=== PATIENT | female | born 1945 | race African-American/Black ===

== ENCOUNTER 2016-07-14 03:02 | Emergency (ER) | payer OTHER ==
[~2016-07-14] VITALS: Ht 152.4 cm; Wt 94.4 kg
[2016-07-14] MEDS ORDERED: ACETAMINOPHEN 500 MG TAB PO STA (03:37)
--- NOTE | 2016-07-14 03:45 | EMERGENCY ROOM VISIT NOTE ---
History Report prepared by Jennifer: Genesis Wall Under the Supervision of: Dr. Awa Hay D.O. First contact with patient: 03:15 Chief Complaint: FEVER Stated Complaint: FEVER Nursing Triage Summary: Fever with cough for past two days. Hx of CHF. History of Present Illness The patient is a 70 year old female who presents to the Emergency Room with complaints of a persistent fever that began today. Per records, the patient was discharged from [facility] after an episode of CHF. Records indicate that the patient as discharged to [facility] for rehabilitation on July 02. Per records, the patient has had a fever of up to 102.7 degrees Fahrenheit, but did not receive any Tylenol or Motrin for her symptoms. The patient states that she has been feeling "lousy" and notes a persistent cough. She denies any chest pain, shortness of breath, or abdominal pain. Source of History: patient, transfer records Onset: today Position: other (global) Symptom Intensity: 102 degrees Fahrenheit Quality: other (fever) Timing: other (persistent) Associated Symptoms: + cough, No SOB, No abdominal pain, No chest pain Review of Systems See HPI for pertinent positives & negatives. A total of 10 systems reviewed and were otherwise negative. Past Medical & Surgical Medical Problems: (1) GERD (gastroesophageal reflux disease) (2) Hyperlipidemia (3) Hypertension (4) Type 2 diabetes mellitus Family History No pertinent family history was stated. Social History Smoking Status: Never Smoker Smokeless Tobacco Use: No Alcohol Use: none Current/Historical Medications Scheduled Aspirin (Aspirin Ec), 81 MG PO QAM Carvedilol (Coreg), 6.25 MG PO BID Docusate Sodium (Docusate Sodium), MG PO BID Enoxaparin Sodium (Lovenox), 30 MG SQ DAILY @ 7PM Famotidine (Pepcid), 20 MG PO DAILY Furosemide (Lasix), 20 MG PO DAILY Glipizide (Glipizide Xl), 7.5 MG PO QAM Glipizide (Glipizide Xl), 5 MG PO QPM Insulin Aspart (Novolog), SQ ACHS Lidocaine (Lidocaine), 1 PATCH TOP DAILY Losartan Potassium (Cozaar), 50 MG PO QAM Magnesium Oxide (Mag-Ox), 400 MG PO TID Metformin Hcl (Glucophage), 500 MG PO BIDM Nystatin (Topical) (Nystop), 1 APPLN TOP BID Potassium Chloride Microencaps (Potassium Chloride Er), 1 TAB PO BIDM Simvastatin (Zocor), 20 MG PO QPM Scheduled PRN Acetaminophen (Tylenol), 650 MG PO Q4 PRN for Mild Pain Benzocaine-Menthol (Mouth-Thro (Cepacol Sore Throat), 1 ORIN PO Q4 PRN for cough/ sore throat Ipratropium-Albuterol (Duoneb), 1 TREATMENT INH Q4H PRN for SOB/Wheezing Polyethylene Glycol 3350 (Miralax), 17 GM PO Q24H PRN for Constipation Senna/Docusate Sod (Senokot S), 1 TAB PO Q24H PRN for Constipation Allergies Coded Allergies: Ketorolac (Verified Allergy, Unknown, UNKNOWN, 07/14/16) Tramadol (Verified Allergy, Unknown, UNKNOWN, 07/14/16) Physical Exam Vital Signs Date Time Temp Pulse Resp B/P Pulse Ox O2 Delivery O2 Flow Rate FiO2 07/14/16 08:03 92 18 109/72 92 07/14/16 05:10 37.8 100 20 130/106 95 Room Air 07/14/16 03:24 Room Air 07/14/16 03:19 113 07/14/16 03:14 91 Room Air 07/14/16 03:02 38.6 108 20 120/71 93 Room Air Physical Exam HEENT: Head - normocephalic and atraumatic Pupils are equal, round, and reactive to light. Extraocular eye muscles are intact, and sclera are anicteric. Nose - moist nasal mucosa without discharge. Mouth - moist buccal mucosa. Oropharynx is nonerythematous and there is no tonsillar exudate or edema noted. Neck: Supple; no JVD, nuchal rigidity, cervical lymphadenopathy. Heart: Tachycardic rate and regular rhythm. There is a normal S1 and S2 with no murmurs, clicks, or gallops appreciated. Lungs: Lung sounds were diminished at both lung bases. No wheezes, rales, or rhonchi. Abdomen: Soft, completely nontender, nondistended, with good bowel sounds. There are no palpable pulsatile masses or hepatosplenomegaly. There is no guarding, rigidity, or rebound noted. Extremities: No evidence of cyanosis, clubbing, or edema. There are easily palpable peripheral pulses. Skin: hot and dry with good turgor and no rashes. Medical Decision & Procedures ER Provider Diagnostic Interpretation: 1-view Chest x-ray: cardiac pacemaker in place haziness in left lung base no obvious consolidation Laboratory Results 07/14/16 03:42 Red Blood Count 3.45, Mean Corpuscular Volume 88.7, Mean Corpuscular Hemoglobin 29.9, Mean Corpuscular Hemoglobin Concent 33.7, Mean Platelet Volume 8.5, Neutrophils (%) (Auto) 45.9, Lymphocytes (%) (Auto) 29.4, Monocytes (%) (Auto) 21.7, Eosinophils (%) (Auto) 2.2, Basophils (%) (Auto) 0.5, Neutrophils # (Auto ) 3.55, Lymphocytes # (Auto) 2.27, Monocytes # (Auto) 1.68, Eosinophils # (Auto ) 0.17, Basophils # (Auto) 0.04 07/14/16 03:42 Test 07/14/16 03:42 07/14/16 03:55 07/14/16 04:00 07/14/16 04:05 White Blood Count 7.73 K/uL (4.8-10.8) Red Blood Count 3.45 M/uL (4.2-5.4) Hemoglobin 10.3 g/dL (12.0-16.0) Hematocrit 30.6 % (37-47) Mean Corpuscular Volume 88.7 fL (80-100) Mean Corpuscular Hemoglobin 29.9 pg (25-34) Mean Corpuscular Hemoglobin Concent 33.7 g/dl (32-36) Platelet Count 250 K/uL (130-400) Mean Platelet Volume 8.5 fL (7.4-10.4) Neutrophils (%) (Auto) 45.9 % Lymphocytes (%) (Auto) 29.4 % Monocytes (%) (Auto) 21.7 % Eosinophils (%) (Auto) 2.2 % Basophils (%) (Auto) 0.5 % Neutrophils # (Auto) 3.55 K/uL (1.4-6.5) Lymphocytes # (Auto) 2.27 K/uL (1.2-3.4) Monocytes # (Auto) 1.68 K/uL (0.11-0.59) Eosinophils # (Auto) 0.17 K/uL (0-0.5) Basophils # (Auto) 0.04 K/uL (0-0.2) RDW Standard Deviation 43.9 fL (36.4-46.3) RDW Coefficient of Variation 13.4 % (11.5-14.5) Immature Granulocyte % (Auto) 0.3 % Immature Granulocyte # (Auto) 0.02 K/uL (0.00-0.02) Anion Gap 10.0 mmol/L (3-11) Est Creatinine Clear Calc Drug Dose 34.1 ml/min Estimated GFR () 37.7 Estimated GFR (Non- 32.5 BUN/Creatinine Ratio 14.9 (10-20) Calcium Level 11.8 mg/dl (8.5-10.1) Total Bilirubin 0.3 mg/dl (0.2-1) Aspartate Amino Transf (AST/SGOT) 18 U/L (15-37) Alanine Aminotransferase (ALT/SGPT) 22 U/L (12-78) Alkaline Phosphatase 101 U/L (45-117) Total Protein 7.0 gm/dl (6.4-8.2) Albumin 3.0 gm/dl (3.4-5.0) Globulin 4.0 gm/dl (2.5-4.0) Albumin/Globulin Ratio 0.8 (0.9-2) Prothrombin Time 10.9 SECONDS (9.0-12.0) Prothromb Time International Ratio 1.0 (0.9-1.1) Activated Partial Thromboplast Time 25.9 SECONDS (21.0-31.0) Partial Thromboplastin Ratio 1.0 Bedside Lactic Acid Venous 0.96 mmol/L (0.90-1.70) Influenza Type A Antigen Neg for Influ A (NEG) Influenza Type B Antigen Neg for Influ B (NEG) Test 07/14/16 05:51 Urine Color YELLOW Urine Appearance CLEAR (CLEAR) Urine pH 5.5 (4.5-7.5) Urine Specific [place] 1.011 (1.000-1.030) Urine Protein NEG (NEG) Urine Glucose (UA) NEG (NEG) Urine Ketones NEG (NEG) Urine Occult Blood NEG (NEG) Urine Nitrite NEG (NEG) Urine Bilirubin NEG (NEG) Urine Urobilinogen NEG (NEG) Urine Leukocyte Esterase NEG (NEG) Laboratory results per my review. Medications Administered Medications (Trade) Dose Ordered Sig/Palmer Route Start Time Stop Time Status Last Admin Dose Admin Acetaminophen (Tylenol Tab) 1,000 mg NOW STAT PO 07/14/16 03:37 07/14/16 03:38 DC 07/14/16 04:02 1,000 MG Procedure The patient was treated with 1000 mg Tylenol Tab PO. ECG Indication: other (fever) Rate (beats per minute): 109 Rhythm: sinus tachycardia, other (paced rhythm) Findings: paced rhythm, no ectopy Comparison ECG Date: no prior available ED Course 0328: Past medical records reviewed. The patient was evaluated in room B9. A complete history and physical exam was performed. A twelve-lead EKG was obtained. Labs were drawn as above. A septic protocol was performed. 0331: I reviewed the patient's records from [facility]. 0337: Ordered Tylenol Tab 1000 mg PO. 0612: I reevaluated the patient and I had a long conversation with her daughter in law. She states that the cough has been persistent for the past two weeks, but states that the fever is new. We are awaiting her urinalysis. 0648: I discussed the patient's case with Dr. Alvarez from [facility]. He states that the patient has been being worked up for the lymphadenopathy in her chest while at [facility] to rule out sarcoid yet they did come here in our waiting for the CT altered her CTs have been read. He notes that the patient hat a PET scan on Wednesday which shows signs fo significant lymph nodes in her chest, liver, and bone that are concerning for metastatic disease. He notes that the plan is to discharge the patient from [facility] tomorrow to [facility] for a lung biopsy and further treatment of her hypercalcemia. 0652: I reevaluated the patient and she is resting. I discussed the treatment plan with the patient and the daughter in law and they verbalized complete understanding and agreement. The patient is ready go back to [facility] Medical Decision The patient is a 70 year old female who presents to the ED with a fever. Differential diagnosis includes sepsis, influenza, pneumonia, bronchitis, CHF. Labs: No leukocytosis, Hemoglobin is 10.3, lactic acid is 0.9, BUN 24, creatinine 1.6, LFTs are normal, urinalysis is negative, coagulation studies are normal, flu was negative. The patient presents here with a fever. We could not identify a source of while she was here. It was thought to be respiratory because the patient had a cough. O2 saturations were stable. I had a lengthy discussion with Dr. Alvarez. It seems that they plan to discharge the patient from [facility] tomorrow to go to [facility] for a lung biopsy. They will watch her closely there for any further sources of infection. Impression Primary Impression: Fever Scribe Attestation The scribe's documentation has been prepared under my direction and personally reviewed by me in its entirety. I confirm that the note above accurately reflects all work, treatment, procedures, and medical decision making performed by me. Departure Information Dispostion Home / Self-Care Forms HOME CARE DOCUMENTATION FORM, IMPORTANT VISIT INFORMATION Patient Instructions My [facility] Additional Instructions Watch her closely for further fevers and possible sources of a fever. Follow up at [facility] for Pet scan results and lung bioposy
[2016-07-14 03:54] VITALS: Ht 152.4 cm; Wt 94.4 kg
[2016-07-14 03:54] LABS: BASO % 0.5 %; BASO ABS # 0.04 K/uL (0-0.2); COMPLETE YES; EOS % 2.2 %; HEMATOCRIT 30.6 % (37-47); IG% 0.3 %; LYMPH % 29.4 %; LYMPH ABS # 2.27 K/uL (1.2-3.4); MEAN CELL VOLUME 88.7 fL (80-100); MEAN CORPUSCULAR HEMOGLOBIN 29.9 pg (25-34); MEAN CORPUSCULAR HGB CONC 33.7 g/dl (32-36); MEAN PLATELET VOLUME 8.5 fL (7.4-10.4); MONO % 21.7 %; NEUT % 45.9 %; PLATELET COUNT 250 K/uL (130-400); RED BLOOD COUNT 3.45 M/uL (4.2-5.4); WHITE BLOOD COUNT 7.73 K/uL (4.8-10.8)
[2016-07-14 04:12] LABS: BUN/CREATININE RATIO 14.9 (10-20); CALCIUM 11.8 mg/dl (8.5-10.1); CREATININE 1.6 mg/dl (0.60-1.20); POTASSIUM 4.2 mmol/L (3.5-5.1)
[2016-07-14 04:14] LABS: ALB/GLOB RATIO 0.8 (0.9-2)
[2016-07-14 04:20] LABS: PROTHROMBIN TIME (PATIENT) 10.9 SECONDS (9.0-12.0)
[2016-07-14] MEDS ORDERED: CARV6.252 PO (04:28)
[2016-07-14] MEDS ORDERED: ASPI81TA28 PO (04:28)
[2016-07-14] MEDS ORDERED: FRS/40 PO (04:29)
[2016-07-14] MEDS ORDERED: FAMO20TA11 PO (04:29)
[2016-07-14] MEDS ORDERED: GLIP-172 PO ×2 (04:31→04:38)
[2016-07-14] MEDS ORDERED: MAGN400T6 PO (04:33)
[2016-07-14] MEDS ORDERED: FURO-85 PO (04:33)
[2016-07-14] MEDS ORDERED: GLCSR5 PO (04:38)
[2016-07-14] MEDS ORDERED: SIMV20TA2 PO (04:38)
[2016-07-14] MEDS ORDERED: POTA10TA32 PO (04:39)
[2016-07-14] MEDS ORDERED: DOCU100C31 PO (04:42)
[2016-07-14] MEDS ORDERED: ENOX1INJ8 SQ (04:42)
[2016-07-14] MEDS ORDERED: NVLG SQ (04:47)
[2016-07-14 05:10] VITALS: TEMP 37.8
[2016-07-14] MEDS ORDERED: LDDP5 TOP (05:12)
[2016-07-14] MEDS ORDERED: LOSA50TA6 PO (05:14)
[2016-07-14] MEDS ORDERED: MAGNTAB4 PO (05:14)
[2016-07-14] MEDS ORDERED: GLC/500 PO (05:16)
[2016-07-14] MEDS ORDERED: NYST100010 TOP (05:19)
[2016-07-14] MEDS ORDERED: BENZ10LO2 PO (05:20)
[2016-07-14] MEDS ORDERED: SENN-65 PO (05:23)
[2016-07-14] MEDS ORDERED: POLY335019 PO (05:23)
[2016-07-14] MEDS ORDERED: ACET-1311 PO (05:24)
[2016-07-14] MEDS ORDERED: IPRASOL4 INH (05:24)
[2016-07-14 06:10] LABS: URINE APPEARANCE CLEAR (CLEAR); URINE BILIRUBIN NEG (NEG); URINE COLOR YELLOW; URINE NITRITE NEG (NEG); URINE PH 5.5 (4.5-7.5); URINE SPECIFIC GRAVITY 1.011 (1.000-1.030); UROBILINOGEN NEG (NEG)
[2016-07-14 06:16] LABS: MANUAL MICROSCOPIC REQUIRED? NO; REVIEW REQ? NO
--- NOTE | 2016-07-14 06:48 | DIAGNOSTIC IMAGING REPORT ---
CHEST ONE VIEW PORTABLE CLINICAL HISTORY: Sepsis COMPARISON STUDY: No previous studies for comparison. FINDINGS: The study is rotated. The heart is mildly enlarged. There is a left subclavian dual-chamber central venous pacemaker/defibrillator present. There is no lobar consolidation. Increased basal markings are likely atelectatic. There is equivocal mild pulmonary vascular congestion.[ IMPRESSION: Technically limited study. Equivocal mild pulmonary vascular congestion. Basilar atelectasis. No evidence of lobar consolidation Electronically signed by: Jeb Johns M.D. 07/14/2016 6:47 AM Dictated Date/Time: 07/14/2016 6:46 AM
[2016-07-14 08:03] VITALS: BP 109/72; PULSE 92; O2SAT 92
== END 2016-07-14 08:22 | disposition home or self-care (01) ==
LOC: EDBD 03:02 → C.EDB 03:05
DX: R50.9 Fever, unspecified (principal); K21.9 Gastro-esophageal reflux disease without esophagitis; E78.5 Hyperlipidemia, unspecified; I10 Essential (primary) hypertension; E11.9 Type 2 diabetes mellitus without complications; Z79.4 Long term (current) use of insulin

== ENCOUNTER → 2016-08-13 | Outpatient (CLI) | payer OTHER ==
[~2016-08-13] MED LIST: ACET-1311 PO; ASPI81TA28 PO; BENZ10LO2 PO; CARV6.252 PO; DOCU100C31 PO; ENOX1INJ8 SQ; FAMO20TA11 PO; FURO-85 PO; GLC/500 PO; GLCSR5 PO; GLIP-172 PO; IPRASOL4 INH; LDDP5 TOP; LOSA50TA6 PO; MAGN400T6 PO; NVLG SQ; NYST100010 TOP; POLY335019 PO; POTA10TA32 PO; SENN-65 PO; SIMV20TA2 PO
--- NOTE | 2016-08-13 11:55 | DIAGNOSTIC IMAGING REPORT ---
ULTRASOUND-GUIDED LEFT RETROMANDIBULAR LYMPH NODE FINE-NEEDLE ASPIRATION BIOPSY. CLINICAL HISTORY: Abnormal PET scan with multiple FDG avid lymph nodes COMPARISON STUDY: Outside PET/CT dated 07/10/2016 FINDINGS: The risks of the procedure were explained the patient and informed consent was obtained. A left-sided retromandibular lymph node was identified which corresponded to a FDG avid lymph node on the outside PET/CT scan. The patient was prepped in sterile fashion. The skin was anesthetized 1% lidocaine. Under ultrasound guidance, 3 passes into the lymph node in question were performed utilizing a 25-gauge needle. Initial pathologic review indicated material suspicious for a granulomatous process. Final pathology is pending at this time. IMPRESSION: 1. Successful ultrasound-guided fine-needle aspiration biopsy of a left retromandibular lymph node. Electronically signed by: Jeb Johns M.D. 08/13/2016 11:54 AM Dictated Date/Time: 08/13/2016 11:52 AM
[2016-08-13 13:18] LABS: BLOOD UREA NITROGEN 16 mg/dl (7-18); BUN/CREATININE RATIO 9.8 (10-20); CARBON DIOXIDE 30 mmol/L (21-32); CHLORIDE 100 mmol/L (98-107); GLUCOSE 154 mg/dl (70-99); MAGNESIUM 1.7 mg/dl (1.8-2.4); SODIUM 137 mmol/L (136-145)
[2016-08-13 13:21] LABS: CALCIUM 13.3 mg/dl (8.5-10.1)
== END | disposition home or self-care (01) ==
LOC: C.ULTR 10:35
PROVIDERS: ATTEND Internal Medicine Endocrinology, Diabetes & Metabolism
DX: E83.52 Hypercalcemia (principal); R63.4 Abnormal weight loss; R91.8 Other nonspecific abnormal finding of lung field; I50.9 Heart failure, unspecified; E83.42 Hypomagnesemia

== ENCOUNTER → 2016-08-18 | Outpatient (CLI) | payer OTHER ==
[2016-08-18 18:55] LABS: BLOOD UREA NITROGEN 19 mg/dl (7-18); BUN/CREATININE RATIO 7.5 (10-20); CARBON DIOXIDE 28 mmol/L (21-32); CHLORIDE 100 mmol/L (98-107); GLUCOSE 156 mg/dl (70-99); POTASSIUM 4.4 mmol/L (3.5-5.1); SODIUM 135 mmol/L (136-145)
== END | disposition home or self-care (01) ==
LOC: C.LABMFLN 10:56
PROVIDERS: ATTEND Internal Medicine Endocrinology, Diabetes & Metabolism
DX: E83.52 Hypercalcemia (principal)

== ENCOUNTER → 2016-09-03 | Outpatient (CLI) | payer OTHER ==
[2016-09-03 19:10] LABS: BLOOD UREA NITROGEN 27 mg/dl (7-18); BUN/CREATININE RATIO 15.1 (10-20); CALCIUM 10.5 mg/dl (8.5-10.1); CARBON DIOXIDE 34 mmol/L (21-32); CHLORIDE 100 mmol/L (98-107); GLUCOSE 316 mg/dl (70-99); SODIUM 139 mmol/L (136-145)
[2016-09-03 19:20] LABS: BETA-HYDROXYBUTYRATE 0.77 mg/dL (0.2-2.81)
== END | disposition home or self-care (01) ==
LOC: C.LABMFLN 10:55
PROVIDERS: ATTEND Internal Medicine
DX: D86.9 Sarcoidosis, unspecified (principal); E83.52 Hypercalcemia

== ENCOUNTER → 2016-09-16 | Outpatient (CLI) | payer OTHER ==
[2016-09-16 18:48] LABS: ALB/GLOB RATIO 0.8 (0.9-2); ALKALINE PHOSPHATASE 238 U/L (45-117); ALT/SGPT 44 U/L (12-78); AST/SGOT 17 U/L (15-37); BLOOD UREA NITROGEN 25 mg/dl (7-18); BUN/CREATININE RATIO 13.7 (10-20); CALCIUM 10.3 mg/dl (8.5-10.1); CARBON DIOXIDE 30 mmol/L (21-32); CHLORIDE 97 mmol/L (98-107); MAGNESIUM 1.7 mg/dl (1.8-2.4); POTASSIUM 4.7 mmol/L (3.5-5.1); SODIUM 132 mmol/L (136-145)
[2016-09-16 18:49] LABS: GLUCOSE 581 mg/dl (70-99)
[2016-09-16 18:59] LABS: BETA-HYDROXYBUTYRATE 1.09 mg/dL (0.2-2.81)
== END | disposition home or self-care (01) ==
LOC: C.LABMFLN 07:35
PROVIDERS: ATTEND Internal Medicine Endocrinology, Diabetes & Metabolism
DX: I10 Essential (primary) hypertension (principal); E83.52 Hypercalcemia; E83.42 Hypomagnesemia

== ENCOUNTER → 2016-10-01 | Outpatient (CLI) | payer OTHER ==
[2016-10-01 13:10] LABS: HEMATOCRIT 37.4 % (37-47)
[2016-10-01 13:36] LABS: BLOOD UREA NITROGEN 30 mg/dl (7-18); BUN/CREATININE RATIO 18.9 (10-20); CALCIUM 10.8 mg/dl (8.5-10.1); CARBON DIOXIDE 33 mmol/L (21-32); CHLORIDE 105 mmol/L (98-107); CHOLESTEROL 169 mg/dl (0-200); GLUCOSE 53 mg/dl (70-99); HDL CHOLESTEROL 83 mg/dl; LDL CHOLESTEROL CALCULATED 74 mg/dl; MAGNESIUM 1.8 mg/dl (1.8-2.4); POTASSIUM 3.7 mmol/L (3.5-5.1); SODIUM 142 mmol/L (136-145); TRIGLYCERIDES 61 mg/dl (0-150); VERY LOW DENSITY LIPOPROT CALC 12 mg/dl
[2016-10-01 13:43] LABS: ESTIMATED AVERAGE GLUCOSE 269 mg/dl; HA1C FLAG Normal (Normal)
== END | disposition home or self-care (01) ==
LOC: C.LABMFLN 11:51
PROVIDERS: ATTEND Internal Medicine Endocrinology, Diabetes & Metabolism
DX: E83.52 Hypercalcemia (principal); E83.42 Hypomagnesemia; E11.9 Type 2 diabetes mellitus without complications

== ENCOUNTER → 2016-11-26 | Outpatient (CLI) | payer OTHER ==
[2016-11-26 13:47] LABS: BLOOD UREA NITROGEN 26 mg/dl (7-18); BUN/CREATININE RATIO 13.5 (10-20); CALCIUM 11.6 mg/dl (8.5-10.1); CARBON DIOXIDE 30 mmol/L (21-32); CHLORIDE 101 mmol/L (98-107); GLUCOSE 208 mg/dl (70-99); POTASSIUM 4.4 mmol/L (3.5-5.1); SODIUM 136 mmol/L (136-145)
== END | disposition home or self-care (01) ==
LOC: C.LAB1850 11:57
PROVIDERS: ATTEND Internal Medicine Endocrinology, Diabetes & Metabolism
DX: E11.9 Type 2 diabetes mellitus without complications (principal)

== ENCOUNTER → 2016-12-10 | Outpatient (CLI) | payer OTHER ==
[2016-12-10 12:43] LABS: BLOOD UREA NITROGEN 28 mg/dl (7-18); BUN/CREATININE RATIO 13.8 (10-20); CALCIUM 10.8 mg/dl (8.5-10.1); CARBON DIOXIDE 27 mmol/L (21-32); CHLORIDE 100 mmol/L (98-107); GLUCOSE 350 mg/dl (70-99); POTASSIUM 4.6 mmol/L (3.5-5.1); SODIUM 134 mmol/L (136-145)
[2016-12-10 12:53] LABS: BETA-HYDROXYBUTYRATE 1.16 mg/dL (0.2-2.81)
== END | disposition home or self-care (01) ==
LOC: C.LAB1850 11:11
PROVIDERS: ATTEND Internal Medicine Endocrinology, Diabetes & Metabolism
DX: E83.52 Hypercalcemia (principal); D86.9 Sarcoidosis, unspecified

== ENCOUNTER → 2016-12-24 | Outpatient (CLI) | payer OTHER ==
[2016-12-24 18:32] LABS: BLOOD UREA NITROGEN 24 mg/dl (7-18); BUN/CREATININE RATIO 13.2 (10-20); CALCIUM 10.6 mg/dl (8.5-10.1); CARBON DIOXIDE 33 mmol/L (21-32); CHLORIDE 98 mmol/L (98-107); GLUCOSE 320 mg/dl (70-99); POTASSIUM 4.6 mmol/L (3.5-5.1); SODIUM 134 mmol/L (136-145)
[2016-12-24 18:42] LABS: BETA-HYDROXYBUTYRATE 0.74 mg/dL (0.2-2.81)
== END | disposition home or self-care (01) ==
LOC: C.LABMFLN 12:37
PROVIDERS: ATTEND Internal Medicine Endocrinology, Diabetes & Metabolism
DX: E83.52 Hypercalcemia (principal)

== ENCOUNTER → 2017-01-26 | Outpatient (CLI) | payer OTHER ==
[2017-01-26 17:58] LABS: CALCIUM 10.1 mg/dl (8.5-10.1)
[2017-01-26 18:00] LABS: HEMATOCRIT 36.7 % (37-47)
[2017-01-26 18:13] LABS: CHOLESTEROL/HDL RATIO 1.7; THYROID STIMULATING HORMONE 0.558 uIu/ml (0.300-4.500)
[2017-01-27 06:01] LABS: ESTIMATED AVERAGE GLUCOSE 252 mg/dl; HA1C FLAG Normal (Normal)
== END | disposition home or self-care (01) ==
LOC: C.LABMFLN 15:25
PROVIDERS: ATTEND Family Medicine
DX: E11.9 Type 2 diabetes mellitus without complications (principal); E83.52 Hypercalcemia; Z79.899 Other long term (current) drug therapy; E78.5 Hyperlipidemia, unspecified

== ENCOUNTER → 2017-01-28 | Outpatient (CLI) | payer OTHER ==
[2017-01-28 13:58] LABS: BLOOD UREA NITROGEN 23 mg/dl (7-18); BUN/CREATININE RATIO 12.6 (10-20); CALCIUM 10.3 mg/dl (8.5-10.1); CARBON DIOXIDE 34 mmol/L (21-32); CHLORIDE 96 mmol/L (98-107); GLUCOSE 253 mg/dl (70-99); POTASSIUM 4.3 mmol/L (3.5-5.1); SODIUM 136 mmol/L (136-145)
[2017-01-28 13:59] LABS: PHOSPHORUS 2.8 mg/dl (2.5-4.9)
== END | disposition home or self-care (01) ==
LOC: C.LABMFLN 08:28
PROVIDERS: ATTEND Family Medicine
DX: N18.3 Chronic kidney disease, stage 3 (moderate) (principal); E83.52 Hypercalcemia; E83.42 Hypomagnesemia